=== PATIENT | female | born 1985 | race African-American/Black ===

== ENCOUNTER 2025-06-29 08:35 | Outpatient (REF) | payer OTHER, SELFPAY ==
[2025-06-29 13:20] LABS: Appearance Urine Turbid; Glucose Urine UA Negative (Negative); MANUAL DIFF FLAG NO; PH 5.5 (5.0-9.0); Specific Gravity - Urine 1.025 (1.005-1.025); UMIC TRIGGER UACC YES
[2025-06-29 13:26] LABS: Hematocrit 40.7 % (37.0-47.0); Hemoglobin 12.6 g/dl (12.0-16.0); Imm Gran Abs Auto 0.02 X10*3/uL (0.00-0.03); Imm Gran Pct Auto 0.3 % (0.0-0.4); Lymphocytes Absolute Auto 2.5 X10*3/uL (1.2-4.9); Mean Corpuscular HGB Conc 31.0 g/dl (31.0-35.0); Mean Corpuscular Hemoglobin 25.1 pg (27.0-33.0); Mean Corpuscular Volume 81.1 fL (80.0-98.0); NRBC Abs Auto 0.000 X10*3/uL (0.0-0.012); NRBC Pct Auto 0.0 /100WBC (0.0-0.2); Platelet Count 464 X10*3/uL (160-400); Red Blood Count 5.02 X10*6/uL (4.20-5.50); White Blood Count 6.8 X10*3/uL (4.8-10.8)
[2025-06-29 13:54] LABS: Alanine Aminotransferase 20 U/L (0-31); Albumin Level 4.5 g/dL (3.5-5.0); Alkaline Phosphatase 98 U/L (39-117); Anion Gap 9 (12-20); Aspartate Amino Transferase 26 U/L (5-31); Blood Urea Nitrogen 11 mg/dL (9-16); Calcium 8.9 mg/dL (8.4-10.2); Carbon Dioxide 27 mmol/L (22-29); Chloride 106 mmol/L (96-108); Cholesterol 157 mg/dL (<200); Estimated Glomerular Filt Rate > 60; HDL Cholesterol 41 mg/dL (>40); Magnesium 2.1 mg/dL (1.6-2.6); Potassium 4.1 mmol/L (3.3-5.1); Sodium 138 mmol/L (135-145); Total Protein 7.6 g/dL (6.5-8.0); Triglycerides 108 mg/dL (<150)
[2025-06-29 14:02] LABS: UACC Culture Trigger YES
[2025-06-29 17:23] LABS: Folate 8.6 ng/mL (> or = 4.0); Vitamin B12 674 pg/mL (200-900)
[2025-06-30 04:39] LABS: HBS Num1 148.40 mIU/mL (0-7.99); HBsAGNum1 0.40 S/CO (0.00-0.99); HIV Num 1 0.13 S/CO (0.00-0.99); Hepatitis B Surface Antigen Negative (Negative); ~HepC Num1 0.17 S/CO (0.00-0.79); ~Hepatitis B Surface Antibody REACTIVE (Nonreactive); ~Hepatitis C Antibody Nonreactive (Nonreactive)
[2025-07-03 13:54] LABS: VITAMIN D (1,25 OH) D3 63 pg/mL; Vit D (1,25-Dihydroxy) Total 63 pg/mL (18-72); Vitamin D (1,25 OH) D2 <8 pg/mL
== END 2025-06-29 08:36 | disposition home or self-care (01) ==
LOC: HO.HKASLDS 08:35
PROVIDERS: PCP Student in an Organized Health Care Education/Training Program; Visit Provider Student in an Organized Health Care Education/Training Program
DX: E66.01 Morbid (severe) obesity due to excess calories (principal); R51.9 Headache, unspecified; R03.0 Elevated blood-pressure reading, without diagnosis of hypertension; R53.83 Other fatigue; Z23 Encounter for immunization; Z13.1 Encounter for screening for diabetes mellitus; Z11.3 Encounter for screening for infections with a predominantly sexual mode of transmission; Z68.41 Body mass index [BMI] 40.0-44.9, adult
CPT/HCPCS: 36415; 80053; 80061; 81001; 82607; 82652; 82746; 83036; 83735; 84443; 85025; 86706; 86803; 87086; 87340; 87389; 90471; 90656; 96127

== ENCOUNTER 2025-06-29 08:35 | Outpatient (AMB) | payer OTHER, SELFPAY ==
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
[2025-06-29 08:42] VITALS: BP 134/67; PULSE 91; TEMP 37.1; O2SAT 99; BMI 41.4
--- OUTSIDE RECORDS SUMMARY | 2025-06-29 09:25 | XMS_ITS | Encounter Summary ---
Author Organization [facility] Address [address] [place] [id number] Phone Care Team Providers Care Venetian Blind Washer Name Role Phone Unknown, Unknown Primary Care Provider Dina ruvalcaba Encounter Details Date Type Department Care Team (Late st Contact Info) Description 08/29/2016 Procedure Pass [facility] [address] [place] [address] Social History Tobacco Use Types Packs/Day Years Used Date Smoking Tobacco: Every Day Cigarettes 0.5 10 Smokeless Tobacco: Current Alcohol Use Standard Drinks/Week Comments No 0 (1 standard drink = 0.6 oz pur e alcohol) Comments Unknown Sex and Gender Information Value Date Recorded Sex Assigned at Not on file Legal Sex Female 2:51 PM EST Gender Identity Not on file Sexual Orientation Not on file documented as of this encounter Plan of Treatment Not on file documented as of this encounter Visit Diagnoses Not on filedocumented in this encounter Care Teams Venetian Blind Washer Relationship Specialty Start Date End Date Unknown, Unknown, PCP - General 08/27/16 documented as of this encounter Additional Source Comments The information contained in this document represents components of the legal health record. It is not the complete legal health record.[facility]
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
== END 2025-06-29 09:06 | disposition home or self-care (01) ==
LOC: HO.HMCFMS 08:35
PROVIDERS: Visit Provider Student in an Organized Health Care Education/Training Program
DX: R03.0 Elevated blood-pressure reading, without diagnosis of hypertension (principal); E66.01 Morbid (severe) obesity due to excess calories; Z12.31 Encounter for screening mammogram for malignant neoplasm of breast; Z23 Encounter for immunization

== ENCOUNTER 2025-07-17 10:25 | Outpatient (AMB) | payer OTHER, SELFPAY ==
[2025-07-17 10:29] VITALS: BP 144/76; PULSE 96; RESP 16; TEMP 36.7; O2SAT 99; BMI 42.3
--- NOTE | 2025-07-17 10:29 | A.OFFPC_ITS ---
Vital Signs 07/17/25 10:29 Height 5 ft 2.8 in Weight 237 lb 8 oz BMI 42.3 BP 144/76 H Blood Pressure Location Rt brachial Position Sitting Respiration 16 Pulse 96 Pulse Source Pulse Oximeter Temp 98.1 F Temp Source Oral Pulse Oximetry (%) 99 Oxygen Delivery Method Room Air Intake Visit Reasons: 2 wk - lab review Allergies No Known Allergies Allergy (Verified 07/17/25 10:30) Medication List - Last Reconciled 07/17/25 by Kannan Bernal MD hydroxyzine HCl 25 mg PO BID PRN Tobacco use date assessed: 06/29/25 Dental Screening Dental Screen Date: 06/29/25 HPI HPI Comments History of Present Illness Details History of Present Illness The patient is a 40-year-old female presenting for a review of laboratory results. Anxiety: The patient reports experiencing anxiety stemming from multiple stressors, including working three jobs and her child undergoing a diagnostic process. She requested a PRN medication for anxiety that is not a benzodiazepine. Elevated blood pressure: Blood pressure was an issue during the last visit. The patient reports inconsistently monitoring her blood pressure at home but states the readings were within the normal range. Social History: - Employment: The patient works three [employer]. - Family: The patient reports her child is currently undergoing a diagnostic evaluation, which is a source of stress. Diagnostic Results: - Complete Blood Count (CBC): White bloo d cells, red blood cells, hemoglobin, hematocrit, and MCV are good. - The MCH was slightly low, which is not clinically significant for anemia. - Platelet count was noted to be slightl y high but is not clinically significant in an asymptomatic patient. - Comprehensive Metabolic Panel (CMP): S odium, potassium, chloride, and kidney function are normal. - Liver function tests are normal. - Glucose: Random glucose was good and h emoglobin A1C was within the normal range. - Additional Labs: Calcium, magnesium, v itamin B12, vitamin D, folate, and thyroid function are normal. - Lipid panel shows good levels of trigl ycerides, total cholesterol, LDL, and HDL. - Urinalysis: Positive for large leukocy te esterase, considered insignificant. - Infectious Disease Screen: Negative fo r Hepatitis B, Hepatitis C, and HIV. Past Medical History - History of elevated blood pressure con cern at a previous visit. Health Maintenance - Comprehensive lab results were reviewe d and found to be within normal limits with some clinically insignificant findings such as slightly low MCH, slightly high platelets, and leukocyte esterase in the urine. - The patient is advised to complete her pending mammogram. - A follow-up visit is recommended in si x months. [facility] Medical History (Updated 07/17/25 @ 10:44 by Kannan Bernal MD) Adjustment disorder with anxiety Morbid obesity due to excess calories Anxiety Family History (Updated 06/29/25 @ 08:44 by Neris Hoover CMA) Mother Pancreatic cancer Father Lung cancer Social History Housing: House Patient Tobacco Use Status: Former Tobacco user e-Cigarette/Vaping Use: Never Used service: No Current occupational status: employed Cognitive needs: No Hearing needs: No Vision needs: Yes (rx glasses/contacts) Questionnaire Thrive Questionnaire Date Thrive assessed: 06/29/25 I am a: Patient What is your living situation today?: I have a steady place to live Within the past 12 months, did the food you bought not last and you didn't have the money to get more?: Never true Within the past 12 months, did you worry whether your food would run out before you got money to buy more?: Never true Do you have trouble paying for medicines?: No Do you have trouble getting transportation to medical appointments?: No Do you have trouble paying your heating and electricity bill?: No Do you have trouble taking care of your child, family member or friend?: No Do you have trouble with day-to-day activities such as bathing, preparing meals, shopping, managing finances, etc.?: No Are you currently unemployed and looking for a job?: No Are you interested in more education?: No Please select the resources that you would like help with: None Currently or been in a relationship where the following occur: No concerns reported THRIVE Score: 0 AUDIT C Alcohol Use Questionnaire (AUDIT-C) 2. How many drinks containing alcohol do you have on a typical day when you are drinking?: 1 or 2 3. How often do you have six or more drinks on one occasion?: Never Total Score: 0 AYALA-7 AMB Questionnaire AYALA-7 Date AYALA - 7 assessed: 06/29/25 Source: Developed by Catia Martinez B.W. Nicola, Norris Ramirez and colleagues, with an educational angela from [employer]. Review of Systems Narrative Review of Systems - General: Patient is asymptomatic per discussion. - Psychiatric: Reports anxiety related to work and family stressors. 10-point ROS reviewed and negative except as noted in HPI Physical exam (Primary Care) Vital Signs: Last Vital Signs Temp 98.1 F 07/17/25 10:29 Pulse 96 07/17/25 10:29 Resp 16 07/17/25 10:29 BP 144/76 H 07/17/25 10:29 Pulse Ox 99 07/17/25 10:29 Oxygen Delivery Method Room Air 07/17/25 10:29 BMI result Body Mass Index 42.3 Tobacco/Smoking Status: Tobacco use Status Tobacco use date assessed 06/29/25 07/17/25 10:36 Patient Tobacco Use Status Former Tobacco user 07/17/25 10:36 e-Cigarette/Vaping Use Never Used 07/17/25 10:36 Thrive Assessment: Date of Thrive Assessment Date Thrive assessed 06/29/25 07/17/25 10:36 Currently or been in a relationship where the following occur: No concerns reported Narrative Physical Exam General: Well-appearing, in no acute distress. Vital signs: Blood pressure is at 144/76. HEENT: Normocephalic, atraumatic. PERRLA, EOMI. Conjunctiva clear, sclera anicteric. Oropharynx clear, mucous membranes moist. TMs intact bilaterally. Neck: Supple, no lymphadenopathy, no thyromegaly, no JVD or carotid bruits. Cardiovascular: RRR, normal S1/S2, no murmurs, rubs, or gallops. Peripheral pulses 2+ and symmetric. No edema. Respiratory: Lungs clear to auscultation bilaterally, no wheezes, rales, or rhonchi. Normal effort. Abdomen: Soft, non-tender, non-distended. Normoactive bowel sounds. No hepatosplenomegaly, no masses. MSK: Full range of motion, no joint swelling or deformity. Normal gait. Skin: Warm, dry, intact. No rashes, lesions, or pallor. Neuro: Alert and oriented x3. Cranial nerves II-XII intact. Strength 5/5 throughout. Sensation intact. Reflexes 2+ symmetric. Normal coordination and gait. Psych: Appropriate mood and affect. Normal judgment and insight. Anxiety present, prescribed hydroxyzine 25 mg PRN, can increase to 50 mg if needed. Coding Level of Care Code Est Pt Level 3 (33963) Diagnoses Elevated blood pressure reading R03.0 Morbid obesity due to excess calories E66.01 Adjustment disorder with anxiety F43.22 Stress at home F43.9 Assessment & Plan Assessment & Plan (1) Elevated blood pressure reading: Code(s): R03.0 - Elevated blood-pressure reading, without diagnosis of hypertension (2) Morbid obesity due to excess calories: Code(s): E66.01 - Morbid (severe) obesity due to excess calories Category: Medical (3) Adjustment disorder with anxiety: Code(s): F43.22 - Adjustment disorder with anxiety Category: Medical (4) Stress at home: Code(s): F43.9 - Reaction to severe stress, unspecified Plan Consent Patient was informed and verbally consented to the use of an ambient scribe for clinic note documentation during this visit. Plan 1. Anxiety - The patient's anxiety is attributed to stressors including her work and her child's health. - A prescription for hydroxyzine 25 mg has been sent. - The patient is advised she can take this as needed (PRN), increase the dose to 50 mg if necessary, take it up to twice daily, and use it to aid with sleep. 2. Elevated Blood Pressure - The patient's in-office blood pressure was 144/76 mmHg. - This reading may be elevated due to situational factors, and medication will not be initiated at this time. - The patient should continue to monitor her blood pressure at home. Discussion Notes I reviewed the patient's comprehensive lab results with her and provided reassurance that they were within normal limits, noting that the slightly low MCH, high platelet count, and leukocyte esterase in the urine were not clinically concerning. We discussed her current blood pressure reading of 144/76 mmHg and agreed to defer medication, attributing the elevation possibly to a situational response, pending continued home monitoring. In response to her request for a non-benzodiazepine anxiolytic to manage stress from her work and family situation, I prescribed hydroxyzine 25 mg as needed. I explained that she could increase the dose to 50 mg and take it up to twice daily, also mentioning it could assist with sleep. I also confirmed she has a pending mammogram and we scheduled a follow-up appointment in six months for continued care. Patient Instructions - Your lab results are normal. - For anxiety, you may take one 25 mg tablet of hydroxyzine as needed. - If needed, you can increase the dose to 50 mg (two tablets). - This medication can be taken up to twice per day and may also help you sleep. - Continue to check your blood pressure at home. - Please make sure to get your pending mammogram done. - Please schedule a follow-up visit in six months. Medical Decision Making The patient is a 40-year-old female presenting for a review of recent laboratory studies. Her comprehensive lab panel was within normal limits, and minor abnormalities, including a slightly low MCH, high platelet count, and urinary leukocyte esterase, were deemed clinically insignificant in an asymptomatic patient. The patient's in-office blood pressure of 144/76 mmHg raised consideration for hypertension, a concern from a prior visit. Given her report of inconsistent but normal home readings and the potential for a white coat effect, antihypertensive therapy is deferred pending more consistent home monitoring. The patient requested treatment for anxiety related to psychosocial stressors, specifying a preference for a non-benzodiazepine medication. Hydroxyzine 25 mg PRN was prescribed as a safe and appropriate first-line option, with instructions for titration up to 50 mg for flexibility in managing symptoms, including sleep. Health maintenance was addressed by confirming a pending mammogram. A six-month follow-up was established to ensure continuity of care for her anxiety and blood pressure monitoring. Total Time Statement 20 min Total time spent caring for the patient today includes pre-visit chart review, documentation, review of laboratory and diagnostic imaging results, medication reconciliation, medically necessary evaluation, counseling on diagnoses, care coordination, ordering appropriate tests and medications, review of tests performed by other providers, reporting test results to the patient, and communication with other healthcare providers. Medications: New hydroxyzine HCl 25 mg PO BID PRN 60 tabs 0RF itching F41.9 - Anxiety disorder, unspecified
== END 2025-07-17 10:43 | disposition home or self-care (01) ==
LOC: HO.HMCFMS 10:26
PROVIDERS: Visit Provider Student in an Organized Health Care Education/Training Program
DX: R03.0 Elevated blood-pressure reading, without diagnosis of hypertension (principal); E66.01 Morbid (severe) obesity due to excess calories; F43.22 Adjustment disorder with anxiety; F43.9 Reaction to severe stress, unspecified